=== PATIENT | male | born 1950 | race Caucasian/White ===

== ENCOUNTER 2024-10-29 14:09 | Emergency (ER) | payer MEDICARE, OTHER, SELFPAY ==
[2024-10-29 14:13] VITALS: BP 166/104
--- NOTE | 2024-10-29 17:07 | ED.GENMED ---
History of Present Illness
General
Chief Complaint: Cough
Source: patient
Exam Limitations: none
Time Seen by Provider: 10/29/24 17:01
History of Present Illness
History of Present Illness:
See MDM
Past History
Past History
ED Past Medical History: None
ED Past Surgical History: None
Social History
Tobacco: Non-smoker
Alcohol: None
Phy Exam
Physical Exam
Physical Exam:
See MDM
Course
Orders/Labs/Results
Orders:
Orders
10/29/24 14:20
CXR2 [CR Chest - 2 Views ] Urgent
Comment:
Reason For Exam: cough
10/29/24 17:06
COVID-19 Antigen Urgent
Source: Nasal Swab
Influenza A+B Rapid Molecular Urgent
BELA Source: Nasal Swab
Specimen Description:
Dexamethasone Pf [Decadron] 10 mg PO NOW STA
Ipratropium/Albuterol Sulfate [Duoneb] 3 ml INH R NOW STA
10/29/24 18:24
Benzonatate [Tessalon Perles] 100 mg PO ONCE ONE
Vital Signs
Initial and Last Documented VS:
Initial Vital Signs
Temp Pulse Resp BP Pulse Ox
99.9 F 104 20 166/104 98
10/29/24 14:13 10/29/24 14:13 10/29/24 14:13 10/29/24 14:13 10/29/24 14:13
Last Documented Vital Signs
Temp Pulse Resp BP Pulse Ox
99.9 F 104 20 166/104 98
10/29/24 14:13 10/29/24 14:13 10/29/24 14:13 10/29/24 14:13 10/29/24 14:13
MDM/Problems Addressed
Differential Diagnosis Includes:
HPI and MDM Narrative:
74-year-old male presenting with cough and congestion for the past several days. Patient was recently at a convention where he believes there was sick contacts. He states he started with a generic cold and has progressively developed into a dry
hacking cough. Patient states he cannot get any sleep because he continues to cough.
On exam, patient has what appears a bronchospastic cough. There is a mild wheeze to the bases bilaterally. Posterior pharynx shows postnasal drip.
Will obtain COVID and flu testing. Will obtain chest x-ray. Will give dose of Decadron and DuoNeb
Physical exam
General: Well appearing and non-toxic
HEENT: protecting airway. Posterior pharynx without exudate or edema. Postnasal drip noted
Neck: appears supple
CV: No evidence of cyanosis
Resp: No accessory muscle use. Bronchospastic cough. Very slight expiratory wheeze to bases
Abd: Non-distended
Extremities: No deformities
Neuro: alert
Psych: Normal affect
Skin: Intact
Problems Addressed including Acute and Chronic Conditions affecting care:
1. Cough
Acuity: acute
Prognosis: stable
Details: Likely mild bronchitis. Will give DuoNeb and Decadron obtain chest x-ray.
Updates
Chest x-ray clear. Patient requesting Tessalon Perles. Will write for steroids, albuterol and Tessalon Perles and discussed return precautions
Differential Diagnosis (but not limited to): Bronchitis, pneumonia, flu, COVID
Testing considered: Blood work
Drug therapy (if applicable): OTC meds, please see d/c instruction regarding Rx drugs
Amount and/or Complexity of Data Reviewed
Clinical info obtained from: Patient
External data reviewed: N/A
Labs I independently reviewed (but not limited to): COVID and flu negative
Radiology: X-ray independently reviewed: Chest x-ray clear
Pulse Ox: not hypoxic
EKG independently reviewed: N/A
Cannon Pinion Adjuster: N/A
Critical Care: N/A
Risk of Complication:
Social Determinants of health: Good social support
Discussed with other providers: N/A
Escalation of Care includes Admit/Obs: After being observed in the Emergency Department, pt stable for discharge.
Occasional wrong word or 'sound a like' substitutions may have occurred due to the inherent limitations of voice recognition software. Read the chart carefully and recognize, using context, where substitutions have occurred.
*Critical Care Note
Total Time (30-74mins, 75-104mins- exclusive of procedures): Not Applicable
ED Attending Note
-
Portions of this chart may have been created with voice recognition software.� Occasional wrong word or��sound alike� substitutions may have occurred due to the inherent limitations of voice recognition software.
Discharge Plan
Departure
Patient Disposition: Home (Routine Discharge)
Date of Disposition: 10/29/24
Time of Disposition: 18:25
Patient with high blood pressure during this ER visit?: Yes
Discharge Problem:
Acute bronchitis
Instructions: Acute Bronchitis, Adult (DC), BLOOD PRESSURE
Prescriptions:
New
prednisone 20 mg tablet
40 mg PO DAILY Qty: 10 0RF
albuterol sulfate 90 mcg/actuation HFA aerosol inhaler
2 puff inhalation Q6H PRN (Reason: shortness of breath or wheezing) Qty: 8.5 0RF
benzonatate 100 mg capsule
100 mg PO BID PRN (Reason: Cough) Qty: 14 0RF
Referrals:
Brent Begum MD [Family Provider] -
Activity Restrictions/Additional Instructions:
Please return for any worsening symptoms.
You may return at any time if you have further concerns.
Please follow up with your doctor at the first available appointment, preferably this week.
Thank you for choosing [facility].
Interventions
Interventions:
*General Assessment Last Done: 10/29/24 14:13
*ED COVID-19 Vaccine History Last Done: 10/29/24 14:13
ED- Pulmonary Assessment Last Done: 10/29/24 17:04
Discharge Date and Time
Print Language: SINHALA
[2024-10-29] MEDS: DUONEB 3 ML INH (17:12)
[2024-10-29] MEDS: DECADRON 10 MG PO (17:13)
[2024-10-29 17:34] LABS: COVID-19 Antigen Negative (Negative)
[2024-10-29] MEDS: TESSALON PERLES 100 MG PO (18:29)
== END 2024-10-29 18:35 | disposition home or self-care (01) ==
LOC: EMR 14:09
PROVIDERS: EMERGENCY PHYSICIAN Student in an Organized Health Care Education/Training Program; FAMILY PHYSICIAN Internal Medicine
DX: J20.9 Acute bronchitis, unspecified (principal); R03.0 Elevated blood-pressure reading, without diagnosis of hypertension; Z11.52 Encounter for screening for COVID-19; Z88.8 Allergy status to other drugs, medicaments and biological substances
CPT/HCPCS: 99283; 94640; 71046; 87502; 87811

== ENCOUNTER → 2024-12-22 15:16 | Outpatient (REF) | payer MEDICARE, OTHER, SELFPAY | LOC: HWRAD 15:16 | PROVIDERS: ATTENDING PHYSICIAN Internal Medicine | DX: E04.1 Nontoxic single thyroid nodule (principal) | CPT/HCPCS: 76536 ==